=== PATIENT | female | born 1985 | race Caucasian/White ===

== ENCOUNTER 2024-04-30 15:58 | Inpatient (IN) | payer BC ==
[~2024-04-30] VITALS: Ht 170.2 cm; Wt 77.2 kg
[2024-04-30 17:32] LABS: EOSINOPHILS # (AUTO) 0.3 X10'3 (0-0.9); LYMPHOCYTES # (AUTO) 1.1 X10'3 (1.1-4.8); LYMPHOCYTES % (AUTO) 7.3 % (21-51); MEAN CORPUSCULAR HEMOGLOBIN 29.4 PG (27.0-31.0); MEAN CORPUSCULAR HGB CONC 33.6 g/dL (33.0-36.5); MEAN PLATELET VOLUME 6.3 FL (7.4-10.4); MONOCYTES # (AUTO) 0.9 X10'3 (0-0.9); NEUTROPHILS # (AUTO) 12.4 X10'3 (1.8-7.7); WHITE BLOOD COUNT 14.8 X10'3 (4.5-11.0)
[2024-04-30 17:33] LABS: BASOPHILS # (AUTO) 0.2 X10'3 (0-0.2); EOSINOPHILS % (AUTO) 1.9 % (0-6); HEMATOCRIT 33.4 % (35.0-45.0); HEMOGLOBIN 11.2 g/dl (12.0-16.0); MEAN CORPUSCULAR VOLUME 87.4 FL (78-98); MONOCYTES % (AUTO) 5.8 % (2-12); PLATELET COUNT 591 X10'3 (140-440); RED BLOOD COUNT 3.82 X10'6 (4.20-5.60); RED CELL DISTRIBUTION WIDTH 12.5 % (11.5-14.5)
[2024-04-30 17:44] LABS: D-DIMER 1.72 MG/L FEU (0-0.50)
[2024-04-30 17:56] LABS: ALBUMIN 2.4 G/DL (3.4-5.0); ANION GAP 6 (8-16); BLOOD UREA NITROGEN 13 MG/DL (7-18); BUN/CREATININE RATIO 16.7 (10.0-20.0); CALCIUM 9.1 MG/DL (8.5-10.1); CHLORIDE 101 MMOL/L (99-107); CREATININE 0.78 MG/DL (0.40-0.90); GLUCOSE 93 MG/DL (70-104); POTASSIUM 4.8 MMOL/L (3.5-5.1); PRO BRAIN NATRIURETIC PEPTIDE 123 PG/ML (0-125); SODIUM 137 MMOL/L (135-145); TOTAL CARBON DIOXIDE 29.6 MMOL/L (24-32); eCRCL 94 ML/MIN; eGFR 82 ML/MIN
[2024-04-30] MEDS ORDERED: magnesium sulf-water 2g/50mL 50 ML IV PRN (18:10)
[2024-04-30] MEDS ORDERED: morphine 2 MG/ML inj. syringe IV PRN (18:10)
[2024-04-30] MEDS ORDERED: acetaminophen 325mg tablet PO PRN (18:10)
[2024-04-30] MEDS ORDERED: magnesium sulf-water 4G/100mL 100 ML IV PRN (18:10)
[2024-04-30] MEDS ORDERED: ondansetron/PF 4mg/2ml inj IV PRN (18:10)
[2024-04-30] MEDS ORDERED: magnesium Cl slow-release 64mg tablet PO PRN (18:10)
[2024-04-30] MEDS ORDERED: HYDROcodone/acetaminophen 5mg/325mg tablet PO PRN (18:10)
[2024-04-30] MEDS ORDERED: albuterol 2.5 MG/3 ML nebule NEB PRN (18:10)
[2024-04-30] MEDS ORDERED: potassium Cl 20 mEq SR tablet PO PRN ×2 (18:10)
[2024-04-30] MEDS ORDERED: potassium Cl 40MEQ/1/2NS 520ml 520 ML IV PRN (18:10)
[2024-04-30] MEDS: normal saline 1000ML IV soln IVB ONE (18:44)
[2024-04-30] MEDS: CefTRIAXone 2gm/D5W 50ml BAG 50 ML IV SCH (18:57)
[2024-04-30] MEDS: normal saline 1000ml 1,000 ML IV SCH (19:03)
[2024-04-30] MEDS ORDERED: iohexol 350MG/ML 100ml bottle IV ONE (19:19)
[2024-04-30 19:28] LABS: URINE HCG NEGATIVE (NEG)
[2024-04-30] MEDS: heparin, porcine 5000 units/ml vial SQ SCH (20:00)
[2024-04-30] MEDS: guaiFENesin 200 MG/10 ML oral syrup UD cup PO PRN (21:41)
[2024-04-30] MEDS ORDERED: NORG1TAB86 PO (22:42)
[2024-04-30 23:25] VITALS: BP 120/64; PULSE 102; RESP 16; TEMP 97.6; O2SAT 93
[2024-04-30 23:30] VITALS: RESP 16; O2SAT 93
[2024-05-01] VITALS (9 sets, daily range): BP systolic 103–123; BP diastolic 57–67; PULSE 77–93; RESP 14–22; TEMP 97.9–98.4; O2SAT 91–96
[2024-05-01] MEDS: acetaminophen 325mg tablet PO SCH (00:35)
[2024-05-01 05:54] LABS: BASOPHILS # (AUTO) 0.1 X10'3 (0-0.2); EOSINOPHILS # (AUTO) 0.3 X10'3 (0-0.9); HEMATOCRIT 31.3 % (35.0-45.0); HEMOGLOBIN 10.6 g/dl (12.0-16.0); MEAN CORPUSCULAR HEMOGLOBIN 29.9 PG (27.0-31.0); MONOCYTES # (AUTO) 0.9 X10'3 (0-0.9); NEUTROPHILS # (AUTO) 9.9 X10'3 (1.8-7.7); RED CELL DISTRIBUTION WIDTH 12.7 % (11.5-14.5)
[2024-05-01 05:57] LABS: EOSINOPHILS % (AUTO) 2.4 % (0-6); LYMPHOCYTES # (AUTO) 1.2 X10'3 (1.1-4.8); LYMPHOCYTES % (AUTO) 9.7 % (21-51); MEAN CORPUSCULAR HGB CONC 33.9 g/dL (33.0-36.5); MEAN CORPUSCULAR VOLUME 88.3 FL (78-98); MONOCYTES % (AUTO) 7.2 % (2-12); NEUTROPHILS % (AUTO) 79.7 % (42-75); PLATELET COUNT 493 X10'3 (140-440); RED BLOOD COUNT 3.55 X10'6 (4.20-5.60); WHITE BLOOD COUNT 12.4 X10'3 (4.5-11.0)
[2024-05-01 06:16] LABS: ALANINE AMINOTRANSFERASE 12 U/L (12-78); ALBUMIN 1.8 G/DL (3.4-5.0); ALBUMIN/GLOBULIN RATIO 0.4 (1.1-1.5); ALKALINE PHOSPHATASE 59 IU/L (46-116); ANION GAP 5 (8-16); ASPARTATE AMINO TRANSFERASE 13 U/L (10-37); BILIRUBIN,TOTAL 0.2 MG/DL (0.1-1.0); BLOOD UREA NITROGEN 10 MG/DL (7-18); BUN/CREATININE RATIO 12.2 (10.0-20.0); CALCIUM 8.2 MG/DL (8.5-10.1); CHLORIDE 106 MMOL/L (99-107); CREATININE 0.82 MG/DL (0.40-0.90); GLUCOSE 93 MG/DL (70-104); POTASSIUM 3.9 MMOL/L (3.5-5.1); SODIUM 138 MMOL/L (135-145); TOTAL CARBON DIOXIDE 27.3 MMOL/L (24-32); TOTAL PROTEIN 6.1 G/DL (6.4-8.2); eCRCL 90 ML/MIN; eGFR 78 ML/MIN
[2024-05-01] MEDS: azithromycin/NS 500mg/250ml 250 ML IV SCH (07:48)
[2024-05-01] MEDS ORDERED: levoFLOXACIN-Levaquin 750MG/D5 150 ML IV SCH (08:00)
[2024-05-01] MEDS ORDERED: ipratropium/albuterol 3ml nebule NEB PRN (09:40)
[2024-05-01] MEDS: FLU VACC TS2024-25(6MOS UP)/PF 45 MCG/0.5 ML SYRINGE IMVAC ONE (10:05)
[2024-05-01] MEDS: NORGESTIMATE ETHINYL ESTRADIOL PO SCH (11:00)
[2024-05-01] MEDS: methylPREDNISolone sod succ 125mg/2ml vial IV ONE (11:00)
[2024-05-01] MEDS: ipratropium/albuterol 3ml nebule NEB SCH (14:46)
[2024-05-01] MEDS: methylPREDNISolone sod succ 125mg/2ml vial IV SCH (19:43)
[2024-05-01] MEDS: CefTRIAXone 2gm/D5W 50ml BAG 50 ML IV SCH (19:44)
[2024-05-02 06:00] VITALS: BP 104/63; PULSE 76; RESP 16; TEMP 97.8; O2SAT 94
[2024-05-02 06:10] LABS: EOSINOPHILS % (AUTO) 0 % (0-6); LYMPHOCYTES # (AUTO) 0.5 X10'3 (1.1-4.8); MEAN PLATELET VOLUME 6.7 FL (7.4-10.4); MONOCYTES # (AUTO) 0.2 X10'3 (0-0.9)
[2024-05-02 06:12] LABS: BASOPHILS % (AUTO) 0.2 % (0-1); HEMATOCRIT 34.5 % (35.0-45.0); HEMOGLOBIN 11.4 g/dl (12.0-16.0); LYMPHOCYTES % (AUTO) 3.9 % (21-51); MEAN CORPUSCULAR HEMOGLOBIN 29.1 PG (27.0-31.0); MEAN CORPUSCULAR VOLUME 88.4 FL (78-98); MONOCYTES % (AUTO) 1.2 % (2-12); NEUTROPHILS # (AUTO) 13.2 X10'3 (1.8-7.7); NEUTROPHILS % (AUTO) 94.7 % (42-75); PLATELET COUNT 644 X10'3 (140-440); RED CELL DISTRIBUTION WIDTH 12.5 % (11.5-14.5); WHITE BLOOD COUNT 13.9 X10'3 (4.5-11.0)
[2024-05-02 06:53] LABS: ALANINE AMINOTRANSFERASE 13 U/L (12-78); ALBUMIN 2.1 G/DL (3.4-5.0); ALBUMIN/GLOBULIN RATIO 0.4 (1.1-1.5); ALKALINE PHOSPHATASE 63 IU/L (46-116); ANION GAP 11 (8-16); ASPARTATE AMINO TRANSFERASE 13 U/L (10-37); BILIRUBIN,TOTAL 0.1 MG/DL (0.1-1.0); BLOOD UREA NITROGEN 10 MG/DL (7-18); BUN/CREATININE RATIO 15.6 (10.0-20.0); CALCIUM 8.6 MG/DL (8.5-10.1); CHLORIDE 106 MMOL/L (99-107); CREATININE 0.64 MG/DL (0.40-0.90); GLUCOSE 149 MG/DL (70-104); SODIUM 142 MMOL/L (135-145); TOTAL CARBON DIOXIDE 25.1 MMOL/L (24-32); TOTAL PROTEIN 6.8 G/DL (6.4-8.2); eCRCL 115 ML/MIN; eGFR > 90 ML/MIN
[2024-05-02 07:56] VITALS: RESP 16; O2SAT 94
[2024-05-02 11:00] VITALS: BP 119/71; PULSE 78; RESP 20; TEMP 98.5; O2SAT 94
[2024-05-02] MEDS ORDERED: ALBU8HFA PO (12:00)
[2024-05-02] MEDS ORDERED: PRED20TA PO (12:00)
[2024-05-02] MEDS ORDERED: GUAI100L97 PO (12:00)
[2024-05-02] MEDS ORDERED: CEFD300C3 PO (12:00)
[2024-05-02] MEDS ORDERED: LACT1CAP55 PO (12:00)
== END 2024-05-02 12:33 | disposition home or self-care (01) | DRG 195 ==
LOC: ER 15:59 → ED HOLD 18:10 → EDBEDREQ 22:55 → SUR 3N 23:25
PROVIDERS: ADMIT Internal Medicine; ATTEND Internal Medicine
DX: J18.9 Pneumonia, unspecified organism (principal); D72.829 Elevated white blood cell count, unspecified; Z20.822 Contact with and (suspected) exposure to COVID-19
CPT/HCPCS: 36415; 71045; 71275; 80048; 80053; 81025; 83605; 83880; 84145; 85025; 85379; 85651; 87040; 87081; 87502; 87503; 87811; 90686; 94640; 94668; 99285; G0378; J0456; J0696; J2919; J7030; Q9967